=== PATIENT | male | born 1965 | race Caucasian/White ===

== ENCOUNTER → 2020-12-05 | Outpatient (CLI) | payer BC ==
[~2020-12-05] MED LIST: BENTYL 20MG TAB20 MG PO; CIPRO500 MG PO; LEVAQUIN750 MG PO; ZOFRAN4 MG PO
== END ==
LOC: KOH-I 09:43
DX: S92.342K Displaced fracture of fourth metatarsal bone, left foot, subsequent encounter for fracture with nonunion (principal); S92.332D Displaced fracture of third metatarsal bone, left foot, subsequent encounter for fracture with routine healing; S92.352D Displaced fracture of fifth metatarsal bone, left foot, subsequent encounter for fracture with routine healing; M19.071 Primary osteoarthritis, right ankle and foot; X58.XXXD Exposure to other specified factors, subsequent encounter
CPT/HCPCS: 73630

== ENCOUNTER 2021-03-23 10:45 | Emergency (ER) | payer BC ==
[~2021-03-23 10:45] MED LIST changes: -BENTYL 20MG TAB20 MG PO; -ZOFRAN4 MG PO
[2021-03-23 11:56] LABS: HEMOGLOBIN 14.2 gm/dl (14.0-17.5); RED BLOOD COUNT 4.74 M/UL (4.20-5.50)
[2021-03-23] MEDS ORDERED: BENTYL 20MG TAB20 MG PO (17:10)
[2021-03-23] MEDS ORDERED: ZOFRAN4 MG PO (17:10)
== END 2021-03-23 17:50 | disposition home or self-care (01) ==
LOC: ER1 10:45
PROVIDERS: Physician Assistant
DX: R10.9 Unspecified abdominal pain (principal); R11.2 Nausea with vomiting, unspecified; R19.7 Diarrhea, unspecified; E86.0 Dehydration; D72.829 Elevated white blood cell count, unspecified; E78.5 Hyperlipidemia, unspecified; I10 Essential (primary) hypertension; Z90.49 Acquired absence of other specified parts of digestive tract; Z88.8 Allergy status to other drugs, medicaments and biological substances
CPT/HCPCS: 80053; 81001; 82150; 83605; 83690; 85007; 85027; 87040; 96374; 99284; J1630; J2405; Q9967

== ENCOUNTER → 2021-03-24 | Outpatient (CLI) | payer BC ==
[~2021-03-24] MED LIST changes: +BENTYL 20MG TAB20 MG PO; +ZOFRAN4 MG PO
[2021-03-24 13:13] LABS: ADENOVIRUS F 40/41 Not Detected (Negative); ASTROVIRUS Not Detected (Negative); CAMPYLOBACTER Not Detected (Negative); CLOSTRIDIUM DIFFICILE TOX A/B Not Detected (Negative); CRYPTOSPORIDIUM Not Detected (Negative); E.COLI 0157 Not Detected (Negative); ENTAMOEBA HISTOLYTICA Not Detected (Negative); ENTEROAGGREGATIVE E.COLI (EAEC Not Detected (Negative); ENTEROPATHOGENIC E.COLI (EPEC) Not Detected (Negative); ENTEROTOXIGENIC E.COLI (ETEC) Not Detected (Negative); GIARDIA LAMBLIA Not Detected (Negative); NOROVIRUS GI/GII Not Detected (Negative); PLESIOMONAS SHIGELLOIDES Not Detected (Negative); ROTOVIRUS A Not Detected (Negative); SALMONELLA Not Detected (Negative); SAPOVIRUS Not Detected (Negative); SHIG/ENTEROINVAS.ECOLI (EIEC) Not Detected (Negative); SHIGA-LIK TOX.PRO.E.COLI (STEC Not Detected (Negative); VIBRIO Not Detected (Negative); VIBRIO CHOLERAE Not Detected (Negative); YERSINIA ENTEROCOLITICA Not Detected (Negative)
[2021-03-24 13:17] LABS: HEMOGLOBIN 12.8 gm/dl (14.0-17.5); RED BLOOD COUNT 4.32 M/UL (4.20-5.50)
[2021-03-24 13:20] LABS: WHITE BLOOD COUNT 20.2 K/UL (4.5-11.0)
== END ==
LOC: LAB 12:23
PROVIDERS: Physician Assistant
DX: R19.7 Diarrhea, unspecified (principal); D72.829 Elevated white blood cell count, unspecified
CPT/HCPCS: 36415; 80053; 85025; 87507

== ENCOUNTER → 2021-04-29 | Outpatient (CLI) | payer BC | LOC: KOH-I 15:39 | DX: S92.342A Displaced fracture of fourth metatarsal bone, left foot, initial encounter for closed fracture (principal); S92.352A Displaced fracture of fifth metatarsal bone, left foot, initial encounter for closed fracture | CPT/HCPCS: 73630 ==

== ENCOUNTER 2022-06-20 17:15 | Emergency (ER) | payer BC | END 2022-06-20 22:40 | disposition home or self-care (01) | LOC: ER1 17:15 | DX: S83.91XA Sprain of unspecified site of right knee, initial encounter (principal); M17.11 Unilateral primary osteoarthritis, right knee; E11.9 Type 2 diabetes mellitus without complications; Z79.4 Long term (current) use of insulin; X58.XXXA Exposure to other specified factors, initial encounter | CPT/HCPCS: 73564; 99283 ==